=== PATIENT | male | born 1975 | race Caucasian/White ===

== ENCOUNTER 2016-05-27 14:25 | Emergency (ER) | payer OTHER ==
[~2016-05-27] VITALS: Wt 85.0 kg
[~2016-05-27 14:25] MED LIST: ATENOLOL 50 MG
--- NOTE | 2016-05-27 15:27 | ERD ---
ER Documentation Chief Complaint Date/Time DATE: 05/27/16 TIME: 15:22 Chief Complaint SUDDEN ONSET DIZINESS FOR 1 HR. NONEURO DEF. NO HEADACHE HPI Patient is a 40-year-old male who presents with sudden onset, constant, moderate , dizziness described as lightheadedness and slightly unsteady gait for the last 2 hours associated with feeling clammy and anxious. Patient reports recent stress and anxiety as well as depression in the setting of relapse of alcohol abuse. Patient reports drinking heavily at night on a daily basis for the last year. Patient denies experiencing alcohol withdrawal, denies suicidal ideations. Patient denies chest pain, dyspnea, headache, vertigo, recent falls. Denies diplopia, denies fever. ROS All systems reviewed and are negative except as per history of present illness. Medications Home Meds Reported Medications Atenolol* (Atenolol*) 50 Mg Tablet, 50 MG PO DAILY QAM, #30 TAB 05/27/16 Discontinued Reported Medications [Atenolol 50 Mg ] No Conflict Check, MG DAILY 02/05/13 Allergies Allergies: Uncoded Allergies: NKA (Allergy, Mild, 02/05/13) PMhx/Soc Past medical history: Hypertension Past surgical history: Left knee ACL repair one year ago Social history: Drinks alcohol on a nightly basis, denies drugs or tobacco History of Surgery: No Anesthesia Reaction: No Hx Neurological Disorder: No Hx Respiratory Disorders: No Hx Cardiac Disorders: Yes (HTN) Hx Psychiatric Problems: No Hx Miscellaneous Medical Probl: No Hx Alcohol Use: No Hx Substance Use: No Hx Tobacco Use: No Smoking Status: Never smoker FmHx Family History: No diabetes Physical Exam Vitals Vital Signs Date Time Temp Pulse Resp B/P Pulse Ox O2 Delivery O2 Flow Rate FiO2 05/27/16 14:43 97.8 69 20 211/135 99 Physical Exam Const: Alert, oriented, no acute distress Head: Atraumatic Eyes: Normal Conjunctiva ENT: Normal External Ears, Nose and Mouth. Neck: Full range of motion. No meningismus. Resp: Clear to auscultation bilaterally Cardio: Regular rate and rhythm, no murmurs Abd: Soft, non tender, non distended. Normal bowel sounds Skin: No petechiae or rashes, sweaty palms Back: No midline or flank tenderness Ext: No cyanosis, or edema Neur: Awake and alert, cranial nerves II through XII intact bilaterally, no nystagmus, strength and sensation intact in 4 extremities, no drift, no dysmetria. No asterixis. No tremor. Psych: Normal Mood and Affect Result Diagram: 05/27/16 1533 Results 24 hrs Laboratory Tests Test 05/27/16 15:33 Anion Gap 18 Blood Urea Nitrogen 12mg/dl Calcium Level 9.3mg/dl Carbon Dioxide Level 26mmol/L Chloride Level 100mmol/L Creatinine 0.72mg/dl Glucose Level 102mg/dl Potassium Level 3.9mmol/L Sodium Level 140mmol/L Current Medications Medications (Trade) Dose Ordered Sig/Daniel Route PRN Reason Start Time Stop Time Status Last Admin Dose Admin Sodium Chloride (NS) 1,000 ml @ 1,000 mls/hr Q1H ONCE IV 05/27/16 15:30 05/27/16 16:29 DC 05/27/16 15:36 Lorazepam (Ativan) 1 mg ONCE ONCE IV 05/27/16 15:30 05/27/16 15:31 DC 05/27/16 15:36 Procedures/MDM EKG: Time 1447, rate 62, normal sinus rhythm normal axis and intervals no ischemic ST-Twave changes no ectopy MDM: Patient with alcohol abuse reports anxiety, dizziness and sweaty palms. Patient has normal EKG normal electrolytes except for slightly elevated anion gap which may be due to alcohol-related ketosis. Patient was given IV fluids and small dose of Ativan and symptoms completely resolved. Patient acknowledges depression and anxiety, but denies SI or HI. No signs of alcohol withdrawal. Tolerating oral intake. Advise follow-up with PMD for referral to psychiatrist or counselor and outpatient treatment of alcoholism. Departure Diagnosis: Primary Impression: Alcohol abuse Additional Impressions: Dehydration Dizziness Condition: TAMARA Mejía May 27, 2016 15:27
[2016-05-27] MEDS ORDERED: LORAZEPAM 2 MG INJ IV ONE (15:30)
[2016-05-27] MEDS ORDERED: SOD CHLORIDE 0.9% 1,000 ML IV ONE (15:30)
[2016-05-27] MEDS ORDERED: ATEN50TA PO (15:43)
[2016-05-27 15:53] LABS: POTASSIUM 3.9 mmol/L (3.5-5.1)
[2016-05-27 15:56] LABS: CREATININE 0.72 mg/dl (0.61-1.24)
[2016-05-27 15:57] LABS: CALCIUM 9.3 mg/dl (8.4-10.2)
== END 2016-05-27 17:00 | disposition home or self-care (01) ==
LOC: E/R 14:25
DX: F10.129 Alcohol abuse with intoxication, unspecified (principal); E86.0 Dehydration; I10 Essential (primary) hypertension; R40.2142 Coma scale, eyes open, spontaneous, at arrival to emergency department; R40.2252 Coma scale, best verbal response, oriented, at arrival to emergency department; R40.2362 Coma scale, best motor response, obeys commands, at arrival to emergency department
CPT/HCPCS: 80048; 93005; 96374; 99284; J2060; J7030

== ENCOUNTER 2016-05-28 10:29 | Emergency (ER) | payer SELFPAY ==
[~2016-05-28] VITALS: Wt 81.0 kg
[~2016-05-28 10:29] MED LIST changes: +ATEN50TA PO; -ATENOLOL 50 MG
[2016-05-28 10:30] VITALS: Wt 81.0 kg
== END 2016-05-28 19:27 | disposition left against medical advice (07) ==
LOC: E/R 10:29
DX: Z53.21 Procedure and treatment not carried out due to patient leaving prior to being seen by health care provider (principal)